=== PATIENT | male | born 1935 | race Caucasian/White ===

== ENCOUNTER 2018-07-14 16:58 | Inpatient (IN) | payer MEDICARE, BC ==
[~2018-07-14] VITALS: Ht 177.8 cm; Wt 94.2 kg
[2018-07-14 17:27] LABS: BASOPHILS # (AUTO) 0.06 x10^3/uL (0-0.1); BASOPHILS % (AUTO) 1 % (0-1); EOSINOPHILS # (AUTO) 0.16 x10^3/uL (0-0.4); EOSINOPHILS % (AUTO) 2 % (1-7); LYMPHOCYTES % (AUTO) 16 % (22-44); MD NO; MEAN CORPUSCULAR HGB CONC 33.7 g/dL (33.2-36.2); MEAN CORPUSCULAR VOLUME 91.9 fL (81-97); MEAN PLATELET VOLUME 9.3 fL (7.4-10.4); MONOCYTES # (AUTO) 1.11 x10^3/uL (0.2-0.8); MONOCYTES % (AUTO) 12 % (2-9); NEUTROPHILS # (AUTO) 6.78 x10^3/uL (1.8-6.8); NEUTROPHILS % (AUTO) 71 % (42-75); PLATELET COUNT 246 x10^3/uL (130-400); RED BLOOD COUNT 4.39 x10^6/uL (4.38-5.82); RED CELL DISTRIBUTION WIDTH 14.5 % (9.4-14.8)
[2018-07-14] MEDS ORDERED: SODIUM CHLORIDE FLUSH 10ML SYR IVF ONE (17:30)
[2018-07-14 17:37] LABS: INTERNATIONAL NORMALIZED RATIO 1.08 (0.93-1.1); PROTHROMBIN TIME 11.4 Seconds (9.6-11.5)
[2018-07-14 17:38] LABS: ALBUMIN 2.6 g/dL (3.4-5.0); ANION GAP 7 mmol/L (5-15); CALCIUM 8.9 mg/dL (8.5-10.1); CHLORIDE 107 mmol/L (98-107)
[2018-07-14 17:45] LABS: ALANINE AMINOTRANSFERASE 13 U/L (12-78); ALKALINE PHOSPHATASE 54 U/L (45-117); BILIRUBIN,TOTAL 0.4 mg/dL (0.2-1.0); TOTAL PROTEIN 6.3 g/dL (6.4-8.2)
[2018-07-14] MEDS ORDERED: eliquis (18:20)
[2018-07-14] MEDS ORDERED: atorvastatin (18:20)
[2018-07-14] MEDS ORDERED: norco (18:20)
[2018-07-14] MEDS ORDERED: zofran (18:20)
[2018-07-14] MEDS ORDERED: metoprolol (18:20)
[2018-07-14] MEDS ORDERED: depakote (18:20)
[2018-07-14 18:56] LABS: MICROSCOPIC INDICATED
[2018-07-14 18:57] LABS: CULTURE INDICATED? YES
[2018-07-14] MEDS ORDERED: OMNIPAQUE 350 MG/ML, 100ML BOTTLE ONE (20:17)
[2018-07-14] MEDS ORDERED: ONDANSETRON ODT 4 MG PO PRN (22:00)
[2018-07-14] MEDS ORDERED: BISACODYL 10 MG SUPP PR SCH (22:00)
[2018-07-14] MEDS ORDERED: CEFTRIAXONE PMX 1GM/50ML 50 ML IV SCH (22:00)
[2018-07-14] MEDS ORDERED: POLYETHYLENE GLYCOL 17 GM PACKET PO PRN (22:00)
[2018-07-14] MEDS: SODIUM CHLORIDE FLUSH 10ML SYR IVF SCH (22:10)
[2018-07-14] MEDS ORDERED: CEFTRIAXONE PMX 1GM/50ML 50 ML ONE (22:14)
[2018-07-14] MEDS ORDERED: BISACODYL 10 MG SUPP ONE (22:14)
[2018-07-14] MEDS ORDERED: APIX2.5T PO (22:39)
[2018-07-14] MEDS ORDERED: TAMS-11 PO (22:39)
[2018-07-14] MEDS ORDERED: LATA7.5D OP (22:39)
[2018-07-14] MEDS ORDERED: DULO30CA2 PO (22:39)
[2018-07-14] MEDS ORDERED: FERR325T18 PO (22:39)
[2018-07-14] MEDS ORDERED: ATOR20TA37 PO (22:39)
[2018-07-14] MEDS ORDERED: DIVA500T2 PO (22:39)
[2018-07-14] MEDS ORDERED: METO25TA35 PO (22:40)
[2018-07-14] MEDS: ACETAMINOPHEN 325 MG TABLET PO PRN (23:24)
[2018-07-14 23:30] VITALS: BP 135/84
[2018-07-15 02:40] VITALS: BP 138/77
[2018-07-15 05:18] LABS: MEAN CORPUSCULAR HEMOGLOBIN 31.3 pg (27.5-34.5); MEAN CORPUSCULAR HGB CONC 33.8 g/dL (33.2-36.2); MEAN CORPUSCULAR VOLUME 92.6 fL (81-97); MEAN PLATELET VOLUME 9.4 fL (7.4-10.4); PLATELET COUNT 222 x10^3/uL (130-400); RED BLOOD COUNT 4.09 x10^6/uL (4.38-5.82); RED CELL DISTRIBUTION WIDTH 14.8 % (9.4-14.8)
[2018-07-15 05:22] LABS: BASOPHILS # (AUTO) 0.04 x10^3/uL (0-0.1); BASOPHILS % (AUTO) 0 % (0-1); EOSINOPHILS # (AUTO) 0.24 x10^3/uL (0-0.4); EOSINOPHILS % (AUTO) 2 % (1-7); LYMPHOCYTES % (AUTO) 9 % (22-44); MD NO; MONOCYTES # (AUTO) 1.65 x10^3/uL (0.2-0.8); MONOCYTES % (AUTO) 15 % (2-9); NEUTROPHILS # (AUTO) 8.46 x10^3/uL (1.8-6.8); NEUTROPHILS % (AUTO) 74 % (42-75)
[2018-07-15 05:29] LABS: ALANINE AMINOTRANSFERASE 13 U/L (12-78); ALBUMIN 2.4 g/dL (3.4-5.0); ANION GAP 5 mmol/L (5-15); CALCIUM 8.1 mg/dL (8.5-10.1); CHLORIDE 106 mmol/L (98-107)
[2018-07-15 05:32] LABS: ALKALINE PHOSPHATASE 59 U/L (45-117); BILIRUBIN,TOTAL 0.4 mg/dL (0.2-1.0); CREATININE 1.07 mg/dL (0.7-1.3); TOTAL PROTEIN 5.7 g/dL (6.4-8.2)
[2018-07-15 06:47] VITALS: BP 151/61
[2018-07-15] MEDS ORDERED: ENOXAPARIN 40 MG/0.4 ML SQ SCH (08:30)
[2018-07-15] MEDS ORDERED: [UNRECOGNIZED DRUG - REMARK] MC SCH (08:30)
[2018-07-15] MEDS ORDERED: BISACODYL 10 MG SUPP PR PRN (08:30)
[2018-07-15] MEDS: DIVALPROEX 500 MG TABLET.DR PO SCH ×2 (08:50→21:30)
[2018-07-15] MEDS: DULOXETINE 30 MG CAPSULE.DR PO SCH ×2 (08:50→21:31)
[2018-07-15] MEDS: SENNA/DOCUSATE TABLET PO SCH (08:50)
[2018-07-15] MEDS: APIXABAN 2.5 MG TABLET PO SCH ×2 (08:50→21:31)
[2018-07-15] MEDS: TAMSULOSIN 0.4 MG CAP.ER.24H PO SCH (08:51)
[2018-07-15] MEDS: SODIUM CHLORIDE FLUSH 10ML SYR IVF SCH ×2 (08:58→21:31)
[2018-07-15] MEDS: SODIUM CHLORIDE 0.9% 1,000 ML IV SCH (08:58)
[2018-07-15 12:51] VITALS: BP_SYST 60
[2018-07-15] MEDS: CARVEDILOL 3.125 MG TABLET PO SCH (18:00)
[2018-07-15 18:57] VITALS: BP 126/73
[2018-07-15] MEDS: LATANOPROST OPHTH 0.005%, 2.5ML OP SCH (21:00)
[2018-07-15] MEDS: ATORVASTATIN 20 MG TABLET PO SCH (21:30)
[2018-07-16] MEDS: SODIUM CHLORIDE 0.9% 1,000 ML IV SCH ×2 (01:10→17:22)
[2018-07-16 01:51] VITALS: BP 109/56
[2018-07-16] MEDS ORDERED: SODIUM CHLORIDE 0.9%, 500ML IVBOLUS ONE (05:30)
[2018-07-16 05:35] LABS: BASOPHILS # (AUTO) 0.05 x10^3/uL (0-0.1); BASOPHILS % (AUTO) 1 % (0-1); EOSINOPHILS # (AUTO) 0.32 x10^3/uL (0-0.4); EOSINOPHILS % (AUTO) 4 % (1-7); LYMPHOCYTES # (AUTO) 1.63 x10^3/uL (1-3.4); LYMPHOCYTES % (AUTO) 22 % (22-44); MD NO; MEAN CORPUSCULAR HEMOGLOBIN 31.2 pg (27.5-34.5); MEAN CORPUSCULAR HGB CONC 33.9 g/dL (33.2-36.2); MEAN CORPUSCULAR VOLUME 91.9 fL (81-97); MEAN PLATELET VOLUME 9.6 fL (7.4-10.4); MONOCYTES # (AUTO) 1.11 x10^3/uL (0.2-0.8); MONOCYTES % (AUTO) 15 % (2-9); NEUTROPHILS # (AUTO) 4.43 x10^3/uL (1.8-6.8); NEUTROPHILS % (AUTO) 59 % (42-75); PLATELET COUNT 202 x10^3/uL (130-400); RED BLOOD COUNT 3.63 x10^6/uL (4.38-5.82); RED CELL DISTRIBUTION WIDTH 14.9 % (9.4-14.8)
[2018-07-16] MEDS: CARVEDILOL 3.125 MG TABLET PO SCH (06:28)
[2018-07-16 06:56] VITALS: BP 107/57
[2018-07-16] MEDS: SENNA/DOCUSATE TABLET PO SCH (09:00)
[2018-07-16] MEDS: METOPROLOL TARTRATE 25 MG TABLET PO SCH ×2 (09:00→20:49)
[2018-07-16] MEDS: SODIUM CHLORIDE FLUSH 10ML SYR IVF SCH ×2 (09:00→20:48)
[2018-07-16] MEDS: DIVALPROEX 500 MG TABLET.DR PO SCH ×2 (09:33→20:49)
[2018-07-16] MEDS: TAMSULOSIN 0.4 MG CAP.ER.24H PO SCH (09:33)
[2018-07-16] MEDS: APIXABAN 2.5 MG TABLET PO SCH ×2 (09:33→20:50)
[2018-07-16] MEDS: DULOXETINE 30 MG CAPSULE.DR PO SCH ×2 (09:34→20:50)
[2018-07-16 12:52] LABS: ALBUMIN 2.1 g/dL (3.4-5.0); ANION GAP 7 mmol/L (5-15); CHLORIDE 108 mmol/L (98-107); CREATININE 1.01 mg/dL (0.7-1.3)
[2018-07-16 14:02] VITALS: BP 110/65
[2018-07-16] MEDS: ACETAMINOPHEN 325 MG TABLET PO PRN ×2 (14:35→20:49)
[2018-07-16 17:31] LABS: MICROSCOPIC INDICATED
[2018-07-16 20:00] VITALS: BP 141/56
[2018-07-16] MEDS: ATORVASTATIN 20 MG TABLET PO SCH (20:49)
[2018-07-16] MEDS: LATANOPROST OPHTH 0.005%, 2.5ML OP SCH (22:12)
[2018-07-17 02:00] VITALS: BP 108/51
[2018-07-17 06:04] LABS: CHLORIDE 110 mmol/L (98-107)
[2018-07-17 06:28] LABS: ALBUMIN 1.9 g/dL (3.4-5.0); ANION GAP 9 mmol/L (5-15); CALCIUM 8.1 mg/dL (8.5-10.1); CREATININE 0.97 mg/dL (0.7-1.3)
[2018-07-17 08:42] VITALS: BP 112/72
[2018-07-17] MEDS: SENNA/DOCUSATE TABLET PO SCH (08:47)
[2018-07-17] MEDS: DULOXETINE 30 MG CAPSULE.DR PO SCH (08:47)
[2018-07-17] MEDS: ACETAMINOPHEN 325 MG TABLET PO PRN ×2 (08:47→13:36)
[2018-07-17] MEDS: TAMSULOSIN 0.4 MG CAP.ER.24H PO SCH (08:47)
[2018-07-17] MEDS: APIXABAN 2.5 MG TABLET PO SCH (08:48)
[2018-07-17] MEDS: METOPROLOL TARTRATE 25 MG TABLET PO SCH (08:48)
[2018-07-17] MEDS: DIVALPROEX 500 MG TABLET.DR PO SCH (08:48)
[2018-07-17] MEDS: SODIUM CHLORIDE FLUSH 10ML SYR IVF SCH (08:52)
[2018-07-17] MEDS: SODIUM CHLORIDE 0.9% 1,000 ML IV SCH (10:13)
[2018-07-17] MEDS ORDERED: POLY17PO5 PO (11:47)
[2018-07-17] MEDS ORDERED: SENN1TAB8 PO (11:47)
[2018-07-17 15:13] VITALS: BP 137/75
== END 2018-07-17 16:23 | DRG 391 ==
LOC: ED 21:23 → EDIP 21:52 → 4NOR 22:50
PROVIDERS: ADMIT Internal Medicine; ATTEND Internal Medicine
PROC: 0T9B70Z Drainage of Bladder with Drainage Device, Via Natural or Artificial Opening (ICD-10-PCS; principal; 2018-07-14)
DX: K59.00 Constipation, unspecified (principal); J96.01 Acute respiratory failure with hypoxia; E44.0 Moderate protein-calorie malnutrition; D68.69 Other thrombophilia; E78.5 Hyperlipidemia, unspecified; G40.909 Epilepsy, unspecified, not intractable, without status epilepticus; I10 Essential (primary) hypertension; I48.2 Chronic atrial fibrillation; K40.20 Bilateral inguinal hernia, without obstruction or gangrene, not specified as recurrent; Z66 Do not resuscitate; Z85.46 Personal history of malignant neoplasm of prostate; Z86.73 Personal history of transient ischemic attack (TIA), and cerebral infarction without residual deficits; R31.9 Hematuria, unspecified; Z88.8 Allergy status to other drugs, medicaments and biological substances; Z68.29 Body mass index [BMI] 29.0-29.9, adult
CPT/HCPCS: 36415; 74177; 80048; 80053; 80164; 81001; 82040; 83690; 85025; 85610; 85730; 87086; 93005; 96365; G0378; J0696; Q9967; J7030; J7040